=== PATIENT | female | born 1985 | race Caucasian/White ===

== ENCOUNTER 2016-06-08 14:33 | Emergency (ER) | payer BC ==
[~2016-06-08] VITALS: Ht 165.1 cm; Wt 81.1 kg
[~2016-06-08 14:33] MED LIST: ENDOCET 5-3251 EACH PO; FLONASE16 G1 BOTH NARES; FLONASE16 G1 NS; IBUPROFEN800 MG PO; PRENATAL TABLE1 EAC3 PO; ZANTAC150 MG PO; ZYRTEC10 M3 PO; ZYRTEC5 MG PO
[2016-06-08 15:26] LABS: EOSINOPHIL (%) 0.6 % (0-5); EOSINOPHIL COUNT 0.1 K/uL (0-0.3); HEMATOCRIT 41.8 % (36.0-46.0); IMMATURE GRANULOCYTE (%) 0.1 % (0.0-0.7); IMMATURE GRANULOCYTE COUNT 0.1 K/uL; MCH 30.8 PG (29.0-34.0); MCHC 34.4 G/DL (30.0-36.0); MCV 89.5 FL (83-99); MEAN PLAT.VOLUME 9.6 uM^3 (9.5-12.4); MONOCYTE (%) 5.8 % (3-12); MONOCYTE COUNT 0.6 K/uL (0-0.8); NEUTROPHIL (%) 72.7 % (45-76); PLATELET COUNT 314 K/uL (156-360); RBC DIS.WIDTH-CV 13.4 % (11.8-14.6); RBC DIS.WIDTH-SD 42.9 % (39-53); RED BLOOD COUNT 4.67 M/uL (3.80-5.20); WHITE BLOOD COUNT 9.6 K/uL (4.1-10.2)
[2016-06-08 16:16] VITALS: BP 147/104
== END 2016-06-08 16:20 | disposition home or self-care (01) ==
LOC: EME 14:33
PROVIDERS: Emergency Medicine
DX: N93.8 Other specified abnormal uterine and vaginal bleeding (principal); I10 Essential (primary) hypertension; Z87.891 Personal history of nicotine dependence
CPT/HCPCS: 84702; 85025; 99281; 99285; J7030

== ENCOUNTER 2016-06-30 07:31 | Day surgery (SDC) | payer BC ==
[~2016-06-30] VITALS: Ht 165.1 cm; Wt 79.3 kg
[~2016-06-30 07:31] MED LIST changes: +TYLENOL EXTRA500 MG PO
[2016-06-30 08:19] VITALS: BP 117/65
[2016-06-30] MEDS ORDERED: HYDROCODON-ACE1 EAC7 PO (10:30)
[2016-06-30 12:05] VITALS: BP 113/84
[2016-06-30 13:05] VITALS: BP 127/76
== END 2016-06-30 13:26 | disposition home or self-care (01) ==
LOC: SDC 07:31 → EDSTATUS 10:49 → 2SOUTH 10:49 → SDC 10:49
PROC: 0UB74ZZ Excision of Bilateral Fallopian Tubes, Percutaneous Endoscopic Approach (ICD-10-PCS; principal; 2016-06-30)
DX: Z30.2 Encounter for sterilization (principal); Z87.828 Personal history of other (healed) physical injury and trauma; J45.909 Unspecified asthma, uncomplicated; Z80.41 Family history of malignant neoplasm of ovary; Z82.0 Family history of epilepsy and other diseases of the nervous system; Z81.4 Family history of other substance abuse and dependence; Z83.3 Family history of diabetes mellitus; Z83.49 Family history of other endocrine, nutritional and metabolic diseases; Z80.6 Family history of leukemia; Z80.0 Family history of malignant neoplasm of digestive organs; Z87.891 Personal history of nicotine dependence
CPT/HCPCS: 88302; J0131; J1100; J1170; J1885; J2250; J2405; J2550; J2765; J3010

== ENCOUNTER 2017-07-13 16:30 | Emergency (ER) | payer BC ==
[~2017-07-13] VITALS: Ht 167.6 cm; Wt 74.0 kg
[~2017-07-13 16:30] MED LIST changes: +HYDROCODON-ACE1 EAC7 PO
[2017-07-13 17:17] LABS: HEMATOCRIT 41.3 % (36.0-46.0); HEMOGLOBIN 14.2 G/DL (11.9-15.5); MCH 31.9 PG (29.0-34.0); MCHC 34.4 G/DL (30.0-36.0); MCV 92.8 FL (83-99); PLATELET COUNT 323 K/uL (156-360); RBC DIS.WIDTH-CV 12.2 % (11.8-14.6); RBC DIS.WIDTH-SD 41.5 % (39-53); RED BLOOD COUNT 4.45 M/uL (3.80-5.20); WHITE BLOOD COUNT 6.6 K/uL (4.1-10.2)
[2017-07-13 17:30] LABS: CHLORIDE 108 mEq/L (99-109); POTASSIUM 4.2 mEq/L (3.7-5.4); SODIUM 141 mEq/L (136-147)
[2017-07-13 17:32] LABS: GLUCOSE 118 mg/dL (70-99)
[2017-07-13 17:36] LABS: CREATININE 0.8 mg/dL (0.6-1.3); GFR ESTIMATE (CALCULATED) > 59 mL/min/
[2017-07-13 17:37] LABS: UREA NITROGEN (BUN) 13 mg/dL (9-23)
[2017-07-13 17:44] LABS: TROP-I INTERPRETATION NEGATIVE; TROPONIN-I < 0.01 ng/mL (0.0-0.30)
[2017-07-13 20:20] LABS: QUANTITATIVE HCG < 4.0 MIU/ML
[2017-07-13 21:38] LABS: TROP-I INTERPRETATION NEGATIVE; TROPONIN-I < 0.01 ng/mL (0.0-0.30)
[2017-07-13 22:10] VITALS: BP 140/97
== END 2017-07-13 22:41 | disposition home or self-care (01) ==
LOC: EME 16:30
PROVIDERS: Emergency Medicine
DX: R07.89 Other chest pain (principal); R91.8 Other nonspecific abnormal finding of lung field; Q61.3 Polycystic kidney, unspecified; J45.909 Unspecified asthma, uncomplicated; Z87.891 Personal history of nicotine dependence
CPT/HCPCS: 71046; 71275; 80048; 84484; 84702; 85027; 93005; 99281; 99285; J7030